=== PATIENT | male | born 1955 | race Caucasian/White ===

== ENCOUNTER 2025-05-26 20:11 | Emergency (ER) | payer BC ==
[~2025-05-26] VITALS: Ht 182.9 cm; Wt 83.9 kg
[2025-05-26 20:52] LABS: BASOPHILS % 0.3 % (0.0-1.0); EOSINOPHILS % 1.0 % (0.0-6.0); LYMPHOCYTES % 2.9 % (18.0-39.1); MONOCYTES % 4.4 % (4.4-11.3); NEUTROPHILS % 90.8 % (38.7-80.0); RED CELL DISTRIBUTION WIDTH 13.2 % (11.7-14.4)
[2025-05-26 20:58] LABS: LEUKOCYTE ESTERASE ,URINE LARGE (NEGATIVE); PROTEIN,URINE DIPSTICK >=300 (NEGATIVE); URINE UROBILINOGEN 4 mg/dL (0.2 - 1)
[2025-05-26 21:01] LABS: INR 1.13
[2025-05-26 21:10] LABS: EST GLOMERULAR FILTRATION RATE 74.0 ML/MIN (>=60)
[2025-05-26 21:23] LABS: CORONAVIRUS COVID-19 AG NEGATIVE (NEGATIVE)
[2025-05-26] MEDS: CEFTRIAXONE 2 GM in SODIUM CHLORIDE 0.9% 100 ML IV ONE (21:28)
[2025-05-26] MEDS: ACETAMINOPHEN 325 MG TAB PO ONE (21:28)
[2025-05-26] MEDS: SODIUM CHLORIDE 0.9% 1000ML 1,000 ML IV STA (21:29)
[2025-05-26 23:00] VITALS: PULSE 88; RESP 16; TEMP 98.7
[2025-05-26] MEDS ORDERED: CEFDINIR300 MG PO (23:45)
[2025-05-27 00:10] VITALS: BP 103/69; PULSE 88; RESP 18; TEMP 98.7; O2SAT 97
== END 2025-05-26 23:59 | disposition home or self-care (01) ==
LOC: ER 20:36
DX: R50.9 Fever, unspecified (principal); N39.0 Urinary tract infection, site not specified; I10 Essential (primary) hypertension; E78.5 Hyperlipidemia, unspecified; E03.9 Hypothyroidism, unspecified; Z11.52 Encounter for screening for COVID-19; R94.31 Abnormal electrocardiogram [ECG] [EKG]; Z87.19 Personal history of other diseases of the digestive system
CPT/HCPCS: 36415; 71045; 80053; 81001; 82550; 83605; 84484; 85025; 85610; 85730; 87040; 87086; 87186; 87426; 87428; 93005; 99284; J0696; J7030; J7050